=== PATIENT | female | born 1985 | race Two or more races ===

== ENCOUNTER 2020-12-27 10:04 | Emergency (ER) | payer OTHER ==
[~2020-12-27] VITALS: Ht 160 cm; Wt 83.9 kg
== END 2020-12-27 20:38 | disposition home or self-care (01) ==
LOC: ER 10:04
DX: O20.0 Threatened abortion (principal); O26.891 Other specified pregnancy related conditions, first trimester; R31.9 Hematuria, unspecified; Z34.01 Encounter for supervision of normal first pregnancy, first trimester

== ENCOUNTER 2022-01-05 14:54 | Emergency (ER) | payer OTHER ==
[~2022-01-05] VITALS: Ht 160 cm; Wt 91.2 kg
== END 2022-01-05 19:11 | disposition home or self-care (01) ==
LOC: ER 14:54
DX: S93.409A Sprain of unspecified ligament of unspecified ankle, initial encounter (principal); W18.30XA Fall on same level, unspecified, initial encounter; Y93.68 Activity, volleyball (beach) (court); Y92.9 Unspecified place or not applicable; Y99.9 Unspecified external cause status